=== PATIENT | female | born 1995 | race Caucasian/White ===

== ENCOUNTER 2024-06-01 15:18 | Inpatient (IN) | payer MEDICAID ==
[~2024-06-01] VITALS: Ht 177.8 cm; Wt 97.2 kg
[2024-06-02 03:45] VITALS: BP 150/92; PULSE 71; RESP 18; TEMP 97.7
[2024-06-02] MEDS ORDERED: BENZOCAINE/MENTHOL LOZENGE PO PRN (07:00)
[2024-06-02] MEDS ORDERED: OMEPRAZOLE 20 MG CAPSULE PO PRN (07:00)
[2024-06-02] MEDS ORDERED: LOPERAMIDE HCL 2 MG CAPSULE PO PRN (07:00)
[2024-06-02] MEDS ORDERED: IBUPROFEN 600 MG TABLET PO PRN (07:00)
[2024-06-02] MEDS ORDERED: MAGNESIUM HYDROXIDE SUSPENSION 30 ML UDCUP PO PRN (07:00)
[2024-06-02] MEDS ORDERED: CloNIDine HCL 0.1 MG TABLET PO PRN (07:00)
[2024-06-02] MEDS ORDERED: MAG HYDROX/ALUMINUM HYD/SIMETH ES 30 ML SUSPENSION UDCUP PO PRN (07:00)
[2024-06-02] MEDS ORDERED: DOCUSATE SODIUM 100 MG CAPSULE PO PRN (07:00)
[2024-06-02] MEDS ORDERED: PETROLATUM,WHITE 28 GM JELLY TP PRN (07:00)
[2024-06-02] MEDS ORDERED: BACITRACIN 28 GM OINTMENT TP PRN (07:00)
[2024-06-02] MEDS ORDERED: ALBUTEROL SULFATE HFA 90 MCG/PUFF 8 GM INHALER IH PRN (07:00)
[2024-06-02 08:49] LABS: BASOPHILS % (AUTO) 0.3 % (0.0-2.0); EOSINOPHILS % (AUTO) 0.5 % (1.0-6.0); HEMATOCRIT 42.6 % (36-46); HEMOGLOBIN 14.6 g/dL (12.0-16.0); LYMPHOCYTES # (AUTO) 2.2 K/uL (1.0-4.8); LYMPHOCYTES % (AUTO) 21.4 % (22.0-44.0); MEAN CORPUSCULAR HEMOGLOBIN 29.1 pg (26.0-34.0); MEAN CORPUSCULAR HGB CONC 34.3 G/dL (31.0-37.0); MEAN CORPUSCULAR VOLUME 85 fL (80-100); MONOCYTES # (AUTO) 0.8 K/uL (0.1-1.0); MONOCYTES % (AUTO) 7.3 % (2.0-9.0); NEUTROPHILS # (AUTO) 7.3 K/uL (1.8-7.7); NEUTROPHILS % (AUTO) 70.5 % (40.0-70.0); PLATELET COUNT (AUTO) 396 K/uL (150-450); RED BLOOD CELL COUNT(AUTO) 5.02 MIL/uL (4.00-5.20); RED CELL DISTRIBUTION WIDTH 12.7 % (11.5-14.5); WHITE BLOOD COUNT (AUTO) 10.3 K/uL (4.5-11.0)
[2024-06-02 09:10] LABS: ALANINE AMINOTRANSFERASE 17 U/L (12-78); ALBUMIN 4.3 g/dL (3.4-5.0); ALKALINE PHOSPHATASE 62 U/L (46-116); ANION GAP 16 mmol/L (8-16); ASPARTATE AMINOTRANSFERASE 19 U/L (15-37); BILIRUBIN,TOTAL 1.3 mg/dL (0.1-1.0); CALCIUM, TOTAL 9.1 mg/dL (8.8-10.5); CARBON DIOXIDE 20 mmol/L (22-29); CHLORIDE 102 mmol/L (98-107); CHOL/HDL RATIO 4.2 (3.9-5.7); CHOLESTEROL 144 mg/dL (131-200); CREATININE 0.79 mg/dL (0.60-1.30); FREE T4 (FREE THYROXINE) 1.61 ng/dL (0.76-1.46); GLOMERULAR FILTR. RATE CALC > 60 mL/min (>60); GLUCOSE,RANDOM 94 mg/dL (70-110); HDL CHOLESTEROL 34 mg/dL (40-60); LDL CHOL (CALC.) 91 mg/dL (0-130); POTASSIUM 3.6 mmol/L (3.5-5.1); SODIUM SERUM 138 mmol/L (136-145); T4 (THYROXINE) 11.3 mcg/dL (4.7-13.3); THYROID STIMULATING HORMONE 1.55 uIU/mL (0.36-3.74); TOTAL PROTEIN, SERUM 8.6 g/dL (6.4-8.2); TRIGLYCERIDES 93 mg/dL (15-150); UREA NITROGEN, BLOOD 18 mg/dL (7-18)
[2024-06-02 09:11] VITALS: BP 126/91; PULSE 101; RESP 18; TEMP 97.9; O2SAT 100
[2024-06-02 20:29] VITALS: BP 142/84; PULSE 100; RESP 18; TEMP 97.5; O2SAT 97
[2024-06-03 09:34] VITALS: BP 137/91; PULSE 88; RESP 17; TEMP 97.7; O2SAT 98
[2024-06-03] MEDS: ONDANSETRON HCL 4 MG TABLET PO PRN (21:33)
[2024-06-03 22:05] VITALS: BP 111/72; PULSE 104; RESP 18; TEMP 98; O2SAT 98
[2024-06-04] MEDS: LORazepam 2 MG TABLET PO PRN (05:00)
[2024-06-04 08:47] VITALS: BP 149/90; PULSE 90; RESP 18; TEMP 98.2; O2SAT 100
[2024-06-04 21:06] VITALS: BP 138/76; PULSE 95; RESP 18; TEMP 97.9; O2SAT 98
[2024-06-05] MEDS: PARoxetine HCL 10 MG TABLET PO SCH (09:30)
[2024-06-05 09:40] VITALS: BP 137/86; PULSE 94; RESP 18; TEMP 98; O2SAT 97
[2024-06-05 20:41] VITALS: BP 150/97; PULSE 78; RESP 18; TEMP 98.2; O2SAT 97
[2024-06-05] MEDS: OLANZapine 5 MG TABLET PO SCH (20:53)
[2024-06-06 09:52] VITALS: BP 130/72; PULSE 66; RESP 16; TEMP 98.2; O2SAT 97
[2024-06-06 20:46] VITALS: BP 133/96; PULSE 89; RESP 18; TEMP 98.2; O2SAT 97
[2024-06-07 10:15] VITALS: BP 132/80; PULSE 87; RESP 18; TEMP 98.1; O2SAT 97
[2024-06-07 20:50] VITALS: BP 144/95; PULSE 99; RESP 18; TEMP 97.6; O2SAT 97
[2024-06-07] MEDS: ZOLPIDEM TARTRATE 10 MG TABLET PO PRN (21:30)
[2024-06-07] MEDS: HALOPERIDOL 5 MG TABLET PO PRN (22:00)
[2024-06-08 09:25] VITALS: BP 129/80; PULSE 81; RESP 17; TEMP 98; O2SAT 99
[2024-06-08 20:36] LABS: APPEARANCE,URINE CLEAR (CLEAR); BILIRUBIN,URINE NEGATIVE (NEGATIVE); COLOR,URINE LIGHT YELLOW (YELLOW); GLUCOSE, URINE (UA) NEGATIVE (NEGATIVE); KETONES,URINE NEGATIVE (NEGATIVE); LEUKOCYTE ESTERASE ,URINE NEGATIVE (NEGATIVE); NITRATE,URINE NEGATIVE (NEGATIVE); OCCULT BLOOD,URINE MODERATE (NEGATIVE); PROTEIN,URINE NEGATIVE (NEGATIVE); SPECIFIC GRAVITIY, URINE 1.009 (1.003-1.030); UROBILINOGEN,URINE <=1.0 mg/dL (<=1.0)
[2024-06-08 20:45] LABS: AMPHET/METH SCREEN,URINE NEGATIVE (NEGATIVE); BARBITURATE SCREEN, URINE NEGATIVE (NEGATIVE); BENZODIAZEPINES SCREEN,URINE NEGATIVE (NEGATIVE); CANNABINOID SCREEN,URINE POSITIVE (NEGATIVE); COCAINE SCREEN,URINE NEGATIVE (NEGATIVE); METHADONE SCREEN, URINE NEGATIVE (NEGATIVE); OPIATE SCREEN,URINE NEGATIVE (NEGATIVE); PHENCYCLIDINE SCREEN,URINE NEGATIVE (NEGATIVE)
[2024-06-08 20:55] LABS: BACTERIA,URINE None Seen /HPF (None Seen); RBC,URINE 0-2 /HPF (0-2); SQUAMOUS EPITHELIAL CELL,UR Few /LPF (None Seen); WBC,URINE 0-2 /HPF (0-5)
[2024-06-08 21:14] VITALS: BP 130/78; PULSE 87; RESP 16; TEMP 97.5
[2024-06-09 09:22] VITALS: BP 125/88; PULSE 92; RESP 18; TEMP 98; O2SAT 96
[2024-06-09] MEDS ORDERED: HALOPERIDOL LACTATE 5 MG/ML VIAL ONE (09:51)
[2024-06-09] MEDS ORDERED: LORazepam 2 MG/ML VIAL ONE (09:51)
[2024-06-09] MEDS: LORazepam 2 MG/ML VIAL IM ONE (10:04)
[2024-06-09] MEDS: HALOPERIDOL LACTATE 5 MG/ML VIAL IM ONE (10:06)
[2024-06-09] MEDS: ACETAMINOPHEN 325 MG TABLET PO PRN (20:43)
[2024-06-09 21:20] VITALS: BP 129/79; PULSE 94; RESP 18; TEMP 97.6; O2SAT 98
[2024-06-10 09:32] VITALS: BP 120/81; PULSE 76; PULSE 77; RESP 16; RESP 18; TEMP 97.7; O2SAT 96; O2SAT 97
[2024-06-10 23:05] VITALS: BP 117/72; PULSE 76; RESP 18; TEMP 97.6; O2SAT 98
[2024-06-11 09:57] VITALS: BP 107/76; PULSE 82; RESP 17; TEMP 98; O2SAT 98
[2024-06-11] MEDS: NICOTINE 21 MG/24 HOUR PATCH TD SCH (15:15)
[2024-06-11] MEDS: RisperiDONE 2 MG TABLET PO SCH (17:00)
[2024-06-11 21:37] VITALS: BP 154/97; PULSE 77; RESP 18; TEMP 97.7; O2SAT 99
[2024-06-12 09:29] VITALS: BP 127/84; PULSE 78; RESP 18; TEMP 97.5; O2SAT 98
[2024-06-12 21:19] VITALS: BP 141/82; PULSE 109; RESP 18; TEMP 97.6; O2SAT 99
[2024-06-13 08:30] VITALS: BP 135/81; PULSE 76; RESP 18; TEMP 98.2; O2SAT 96
[2024-06-13] MEDS: BENZTROPINE MESYLATE 2 MG TABLET PO SCH (20:58)
[2024-06-13 21:38] VITALS: BP 129/86; PULSE 105; RESP 18; TEMP 98.2; O2SAT 99
[2024-06-14 08:00] VITALS: BP 132/71; PULSE 105; RESP 18; TEMP 97.6; O2SAT 97
[2024-06-14] MEDS: RisperiDONE 3 MG TABLET PO SCH (08:23)
[2024-06-14 23:12] VITALS: BP 130/75; PULSE 94; RESP 18; TEMP 97; O2SAT 98
[2024-06-15 10:29] VITALS: BP 127/72; PULSE 83; RESP 18; TEMP 97.7; O2SAT 97
[2024-06-15 22:58] VITALS: BP 123/78; PULSE 100; RESP 18; TEMP 97.9; O2SAT 98
[2024-06-16 08:30] VITALS: BP 123/74; PULSE 95; RESP 18; TEMP 97.6; O2SAT 97
[2024-06-16] MEDS ORDERED: NICOTINE 21 MG/24 HOUR PATCH TD PRN (09:00)
[2024-06-16 21:29] VITALS: BP 133/85; PULSE 86; RESP 17; TEMP 97.8; O2SAT 95
[2024-06-17 09:57] VITALS: BP 134/87; PULSE 77; RESP 18; TEMP 97.8; O2SAT 100
[2024-06-17 21:17] VITALS: BP 118/68; PULSE 85; RESP 18; TEMP 97.9
[2024-06-18 09:26] VITALS: BP 120/67; PULSE 98; RESP 18; TEMP 97.7; O2SAT 98
[2024-06-18] MEDS: CYANOCOBALAMIN 100 MCG TABLET PO SCH (12:46)
[2024-06-18] MEDS: MULTIVITAMINS, THERAPEUTIC TABLET PO SCH (12:47)
[2024-06-18 20:35] VITALS: BP 112/79; PULSE 91; RESP 18; TEMP 97.6; O2SAT 98
[2024-06-19 10:21] VITALS: BP 118/73; PULSE 80; RESP 18; TEMP 98.5; O2SAT 98
[2024-06-19] MEDS ORDERED: RISP3TAB77 PO (15:13)
[2024-06-19] MEDS ORDERED: PARO10TA89 PO (15:14)
[2024-06-19] MEDS ORDERED: BENZ2TAB84 PO (15:14)
== END 2024-06-19 16:00 | disposition home or self-care (01) | DRG 750 ==
LOC: 3EI 06-02 03:42
PROVIDERS: ADMIT Psychiatry & Neurology Psychiatry; ATTEND Psychiatry & Neurology Psychiatry
DX: F25.0 Schizoaffective disorder, bipolar type (principal); R45.851 Suicidal ideations; F10.10 Alcohol abuse, uncomplicated; F41.9 Anxiety disorder, unspecified; G47.00 Insomnia, unspecified; F94.0 Selective mutism; K59.00 Constipation, unspecified; Y90.9 Presence of alcohol in blood, level not specified; Z79.899 Other long term (current) drug therapy
CPT/HCPCS: 80053; 80061; 80307; 81001; 81003; 84436; 84439; 84443; 84703; 85025; 86592; 99285; J1630; J2060; Q0162

== ENCOUNTER 2024-06-01 21:15 | Emergency (ER) | payer MEDICAID ==
[~2024-06-01] VITALS: Ht 172.7 cm; Wt 100.0 kg
[2024-06-01 21:41] VITALS: TEMP 98
[2024-06-01 22:30] VITALS: BP 138/70; PULSE 77; RESP 6; O2SAT 100
[2024-06-01 22:31] LABS: BASOPHILS % (AUTO) 0.3 % (0.0-2.0); EOSINOPHILS % (AUTO) 0.4 % (1.0-6.0); HEMATOCRIT 41.3 % (36-46); HEMOGLOBIN 14.1 g/dL (12.0-16.0); LYMPHOCYTES % (AUTO) 23.1 % (22.0-44.0); MEAN CORPUSCULAR HGB CONC 34.1 G/dL (31.0-37.0); MEAN CORPUSCULAR VOLUME 85 fL (80-100); MONOCYTES # (AUTO) 0.6 K/uL (0.1-1.0); MONOCYTES % (AUTO) 7.4 % (2.0-9.0); NEUTROPHILS # (AUTO) 5.9 K/uL (1.8-7.7); NEUTROPHILS % (AUTO) 68.8 % (40.0-70.0); PLATELET COUNT (AUTO) 336 K/uL (150-450); RED BLOOD CELL COUNT(AUTO) 4.85 MIL/uL (4.00-5.20); RED CELL DISTRIBUTION WIDTH 12.5 % (11.5-14.5); WHITE BLOOD COUNT (AUTO) 8.6 K/uL (4.5-11.0)
[2024-06-01 22:44] LABS: ANION GAP 11 mmol/L (8-16); CARBON DIOXIDE 25 mmol/L (22-29); CHLORIDE 103 mmol/L (98-107); CREATININE 0.79 mg/dL (0.60-1.30); GLOMERULAR FILTR. RATE CALC > 60 mL/min (>60); GLUCOSE,RANDOM 98 mg/dL (70-110); POTASSIUM 3.9 mmol/L (3.5-5.1); SODIUM SERUM 139 mmol/L (136-145); UREA NITROGEN, BLOOD 17 mg/dL (7-18)
[2024-06-02] MEDS: LORazepam 1 MG TABLET PO ONE (01:37)
[2024-06-02] MEDS: OLANZapine 5 MG TABLET PO ONE (01:37)
[2024-06-02 02:21] LABS: COVID AG,FIA SOURCE NASAL SWAB
[2024-06-02 02:28] LABS: SARS-COV2 (COVID) ANTIGEN,FIA Negative (Negative)
== END 2024-06-02 05:34 | disposition home or self-care (01) ==
LOC: EMS 21:15
DX: F32.9 Major depressive disorder, single episode, unspecified (principal); E05.00 Thyrotoxicosis with diffuse goiter without thyrotoxic crisis or storm; F12.90 Cannabis use, unspecified, uncomplicated; Z90.89 Acquired absence of other organs; Z20.822 Contact with and (suspected) exposure to COVID-19
CPT/HCPCS: 80048; 84703; 85025; 99285